=== PATIENT | male | born 1950 | race Caucasian/White ===

== ENCOUNTER 2016-09-22 07:00 | Day surgery (SDC) | payer OTHER ==
[~2016-09-22] VITALS: Ht 175.3 cm; Wt 83.9 kg
[~2016-09-22 07:00] MED LIST: ARIP2TAB10 PO; ASPI-973 PO; FENO48TA4 PO; FLUT9.9S NS; LISI10TA PO; METF500T4 PO; PARO30TA4 PO; QUET100T PO; QUET50TA PO; Sodium Chloride LOK Flush 10 mL Syringe IV PRN; fentaNYL-PF 50 mCg/mL 2 mL Inj IVPUSH PRN
[2016-09-22 07:24] VITALS: BP 115/72; PULSE 66; RESP 16; O2SAT 97
[2016-09-22] MEDS: 0.9% Sodium Chloride 1,000 ML IV SCH ×3 (07:24→08:16)
[2016-09-22 08:26] VITALS: BP 111/67; PULSE 62; RESP 16; O2SAT 95
[2016-09-22 08:35] VITALS: BP 93/58; PULSE 67; RESP 14; O2SAT 95
--- NOTE | 2016-09-22 08:41 | ENDO ---
[address] [address] ENDOSCOPY PROCEDURE PATIENT: KELTON ORTIZ : 1950 MR#: [id number] ADMIT: 09/22/2016 JOB ID: [id number] PRIMARY CARE PROVIDER: Lou Canas PA-C PROCEDURE: Colonoscopy. INDICATIONS: A 66-year-old male who reports for colon cancer screening. EQUIPMENT: [employer]. SEDATION: 3 mg Versed and 75 mcg fentanyl. COMPLICATIONS: None identified. BOWEL PREPARATION: Suboptimal in many locations, with copious amounts of dense fibrous debris in brown pools of fluid in the right colon. Several of these areas just could not be fully cleansed. PROCEDURE INFORMATION: After the risks and benefits were explained, written and verbal informed consent was obtained. The patient was brought into the endoscopy suite and placed into the left lateral decubitus position. Sedation was achieved as above. A digital rectal examination accomplished. Mild internal hemorrhoids were noted. The scope was introduced into the rectum and advanced under direct visualization to the level of the cecum, as identified by the appendiceal orifice and ileocecal valve. The scope was slowly withdrawn to carefully examine the mucosa for any defects or lesions. Retroflexed views were avoided in the rectum. The colon was ultimately decompressed, the scope removed from the patient who tolerated the procedure well. FINDINGS: Prep conditions as above. Diverticulosis was seen in the left colon. Within the limitations of bowel prep, I did not appreciate any significant polyps or mass lesions. ENDOSCOPIC DIAGNOSES: 1. Hemorrhoids. 2. Diverticulosis. 3. Suboptimal bowel prep conditions. RECOMMENDATIONS: No pathology was appreciated today but based on the prep, I would recommend a repeat exam with an extra day of liquids and MiraLAX prior to the official prep within the next 1-2 years.
[2016-09-22 08:42] VITALS: BP 111/67; PULSE 65; RESP 14; O2SAT 96
== END 2016-09-22 23:59 | disposition home or self-care (01) ==
LOC: END 07:00
PROVIDERS: ATTEND Internal Medicine Gastroenterology
DX: Z12.11 Encounter for screening for malignant neoplasm of colon (principal); K57.30 Diverticulosis of large intestine without perforation or abscess without bleeding; K64.8 Other hemorrhoids; I10 Essential (primary) hypertension; F17.210 Nicotine dependence, cigarettes, uncomplicated; Z79.82 Long term (current) use of aspirin; Z79.899 Other long term (current) drug therapy